=== PATIENT | male | born 1950 | race Caucasian/White ===

== ENCOUNTER 2020-09-24 07:17 | Day surgery (SDC) | payer MEDICAID, SELFPAY ==
[~2020-09-24] VITALS: Ht 170.2 cm; Wt 76.2 kg
[2020-09-24] MEDS ORDERED: BENZOCAINE 20% 0.5mL UD SPRAY MM ONE (08:59)
[2020-09-24 12:44] VITALS: BP_SYST 151
== END 2020-09-24 09:45 | disposition home or self-care (01) ==
LOC: SDS 07:17 → SMU 07:21 → EDBD 09:00 → SDS 09:45
PROVIDERS: ATTEND Internal Medicine Gastroenterology
DX: R10.13 Epigastric pain (principal); K21.00 Gastro-esophageal reflux disease with esophagitis, without bleeding; K44.9 Diaphragmatic hernia without obstruction or gangrene; K29.50 Unspecified chronic gastritis without bleeding; K31.7 Polyp of stomach and duodenum; E11.9 Type 2 diabetes mellitus without complications; I48.91 Unspecified atrial fibrillation; I10 Essential (primary) hypertension; Z79.84 Long term (current) use of oral hypoglycemic drugs; Z79.01 Long term (current) use of anticoagulants; Z79.899 Other long term (current) drug therapy; Z20.822 Contact with and (suspected) exposure to COVID-19
CPT/HCPCS: 36415; 43239; 87081; 88305; 88312; 88313; G0378; U0003